=== PATIENT | male | born 1960 | race Caucasian/White ===

== ENCOUNTER 2019-04-22 15:43 | Inpatient (IN) | payer OTHER ==
[2019-04-22 17:44] VITALS: BMI 26.4
--- NOTE | 2019-04-22 21:00 | HP ---
COWS - Scale Resting Pulse: 0= [place] 80 or Below Sweatin=Flushed/Facial Moisture Restless Observation: 1= Difficult to Sit Still Pupil Size: 2= Moderately Dilated Bone or Joint Aches: 4=Acute Joint/Muscle Pain Runny Nose/ Eye Tearin= Runny Nose/Eyes GI Upset > 30mins: 1= Stomach Cramp Tremor Observation: 2= Slight Tremor Visible Yawning Observation: 0= None Anxiety or Irritability: 2=Irritable/Anxious Goose Flesh Skin: 3=Piloerection COWS Score: 19 CIWA Score - Admission Criteria [facility]ASAS Guidelines: Admission for Medically Managed Detox: Requires at least one of the followin. CIWA greater than 12 2. Seizures within the past 24 hours 3. Delirium tremens within the past 24 hours 4. Hallucinations within the past 24 hours 5. Acute intervention needed for co occurring medical disorder 6. Acute intervention needed for co occurring psychiatric disorder 7. Severe withdrawal that cannot be handled at a lower level of care (continued vomiting, continued diarrhea, abnormal vital signs) requiring intravenous medication and/or fluids 8. Admission [facility] Chief Complaint: Heroin withdrawal symptoms Allergies/Adverse Reactions: Allergies Allergy/AdvReac Type Severity Reaction Status Date / Time No Known Allergies Allergy Verified 04/22/19 17:38 History of Present Illness: 58 years old male with 41 years of heroin dependence (since age 17 years) is seeking admission to detox. Patient reports that this is his first admission to detox and also this is his first time at [facility]. He has medical history of DM type 2 and hypertension. He denies suicide attempt and suicidal ideation at this time. Exam Limitations: No Limitations - Ebola screening Have you traveled outside of the country in the last 21 days: No Have you had contact with anyone from an Ebola affected area: No - Review of Systems Constitutional: Chills, Malaise EENT: reports: Nose Congestion Respiratory: reports: No Symptoms reported Cardiac: reports: No Symptoms Reported GI: reports: Poor Appetite, Poor Fluid Intake : reports: No Symptoms Reported Musculoskeletal: reports: Back Pain Integumentary: reports: Dryness, Flushing Neuro: reports: Headache, Tremors Endocrine: reports: Increased Hunger, Increased Thirst, Increased Urine Hematology: reports: No Symptoms Reported Psychiatric: reports: Mood/Affect Appropiate, Orientated x3 Other Systems: Reviewed and Negative Patient History - Patient Medical History Hx Anemia: No Hx Asthma: No Hx Chronic Obstructive Pulmonary Disease (COPD): No Hx Cancer: No Hx Cardiac Disorders: No Hx Congestive Heart Failure: No Hx Hypertension: Yes Hx Hypercholesterolemia: No Hx Pacemaker: No HX Cerebrovascular Accident: No Hx Seizures: No Hx Dementia: No Hx Diabetes: Yes Hx Gastrointestinal Disorders: No Hx Liver Disease: No Hx Genitourinary Disorders: No Hx Sexually Transmitted Disorders: No Hx Renal Disease (ESRD): No Hx Thyroid Disease: No Hx Human Immunodeficiency Virus (HIV): No (Negative 2018) Hx Hepatitis C: No Hx Depression: No Hx Suicide Attempt: No (Denies suicide attempt/ suicidal ideation at this time) Hx Bipolar Disorder: No Hx Schizophrenia: No - Patient Surgical History Past Surgical History: No - PPD History Previous Implant?: Yes Documented Results: Negative w/o proof Implanted On Prior [facility] Admission?: No PPD to be Administered?: Yes - Reproductive History Patient is a Female of Child Bearing Age (11 -55 yrs old): No (Male) - Smoking Cessation Smoking history: Current every day smoker Have you smoked in the past 12 months: Yes Aproximately how many cigarettes per day: 15 Hx Chewing Tobacco Use: No Initiated information on smoking cessation: Yes 'Breaking Loose' booklet given: 04/22/19 - Substance & Tx. History Hx Alcohol Use: No Hx Substance Use: Yes Substance Use Type: Heroin Hx Substance Use Treatment: No - Substances abused Heroin Substance route: Injection Frequency: Daily Amount used: 10 to 15 bags Age of first use: 18 Date of last use: 04/22/19 Family Disease History - Family Disease History Family Disease History: Heart Disease: Father Admission Physical Exam [facility] - Vital Signs Vital Signs: Vital Signs - 24 hr 04/22/19 17:38 Temperature 98.1 F Pulse Rate 61 Respiratory 18 Rate Blood Pressure 103/66 - Physical General Appearance: Yes: Moderate Distress HEENTM: Yes: Nasal Congestion Respiratory: Yes: Lungs Clear, Normal Breath Sounds, No Respiratory Distress Neck: Yes: Supple Breast: Yes: Breast Exam Deferred Cardiology: Yes: Regular Rhythm, Regular Rate Abdominal: Yes: Normal Bowel Sounds Genitourinary: Yes: Within Normal Limits Back: Yes: Normal Inspection Musculoskeletal: Yes: Back pain Extremities: Yes: Tremors Neurological: Yes: Alert, Normal Mood/Affect Integumentary: Yes: Warm Lymphatic: Yes: Within Normal Limits - Diagnostic (1) Opioid dependence with withdrawal Current Visit: Yes Status: Acute (2) Hypertension Current Visit: Yes Status: Acute Qualifiers: Hypertension type: essential hypertension Qualified Code(s): I10 - Essential (primary) hypertension (3) DM type 2 (diabetes mellitus, type 2) Current Visit: Yes Status: Chronic Qualifiers: Diabetes mellitus complication status: with other specified complication Cleared for Admission S - Detox or Rehab [facility] Level of Care: Medically Managed Detox Regimen/Protocol: Librium Breathalyzer - Breathalyzer Breathalyzer: 0 Urine Drug Screen - Test Device Lot number: [id number] Expiration date: 02/01/21 - Control Is test valid?: Yes - Results Drug screen NEGATIVE: No Urine drug screen results: MOP-Opiates Inpatient Rehab Admission - Rehab Decision to Admit Inpatient rehab admission?: No
[2019-04-22] MEDS ORDERED: cloNIDine HCL 0.1 MG TABLET PO PRN (21:11)
[2019-04-22] MEDS ORDERED: MAGNESIUM CITRATE 300 ML BOTTLE PO PRN (21:11)
[2019-04-22] MEDS ORDERED: IBUPROFEN 400 MG TABLET (FP) PO PRN (21:11)
[2019-04-22] MEDS ORDERED: MELATONIN 5 MG TABLETS PO PRN (21:11)
[2019-04-22] MEDS ORDERED: METHADONE HCL 10 MG TABLET (FOR DETOX USE ONLY) PO ONE (21:11)
[2019-04-22] MEDS ORDERED: BISMUTH SUBSALICYLATE 524 MG/30 ML UD PO PRN (21:11)
[2019-04-22] MEDS ORDERED: ACETAMINOPHEN 325 MG TABLET (FP) PO PRN ×2 (21:11)
[2019-04-22] MEDS ORDERED: MAG HYDROX/AL HYDROX/SIMETH 30 ML UNIT-DOSE CUP PO PRN (21:11)
[2019-04-22] MEDS ORDERED: NICOTINE POLACRILEX 2 MG GUM BUC PRN (21:11)
[2019-04-22] MEDS ORDERED: MENTHOL/PHENOL 1 EACH UD MM PRN (21:11)
[2019-04-22] MEDS ORDERED: PATIENT'S OWN MEDICATION (NON-FORMULARY) (Insulin Glargine,Hum.Rec.Anlog 20 UNITS) SCJ SCH (22:00)
[2019-04-22] MEDS: THIAMINE HCL 100 MG TABLET (FP) PO SCH (23:16)
[2019-04-22] MEDS ORDERED: INSULIN (NOVOLOG) ASPART 100 UNITS/ML 10ML VIAL SQ ONE (23:34)
[2019-04-22] MEDS ORDERED: INSULIN SLIDING SCALE (NOVOLOG) 1 VIAL SQ ONE (23:45)
[2019-04-22] MEDS ORDERED: INSULIN (LEVEMIR) 100 UNITS/ML UNITS SQ ONE (23:48)
[2019-04-23] MEDS ORDERED: INSULIN SLIDING SCALE (NOVOLOG) 1 VIAL SQ SCH (07:00)
[2019-04-23] MEDS ORDERED: METHADONE HCL 10 MG TABLET (FOR DETOX USE ONLY) ONE (09:29)
[2019-04-23] MEDS ORDERED: METHADONE HCL 5 MG TABLET (FOR DETOX USE ONLY) ONE (09:29)
[2019-04-23] MEDS ORDERED: METHADONE (DETOX) 20 MG, METHADONE (DETOX) 5 MG PO ONE (10:00)
[2019-04-23 10:42] LABS: ALBUMIN 3.4 g/dl (3.4-5.0); BILIRUBIN,TOTAL 0.4 mg/dL (0.2-1); BLOOD UREA NITROGEN 16.7 mg/dL (7-18); CALCIUM 8.9 mg/dL (8.5-10.1); POTASSIUM 4.1 mmol/L (3.5-5.1); TOT PROT 6.5 g/dl (6.4-8.2)
[2019-04-23 10:55] LABS: HEMATOCRIT 32.7 % (35.4-49); HEMOGLOBIN 11.1 GM/dL (11.7-16.9); MCH 28.1 pg (25.7-33.7); MCHC 34.1 g/dl (32.0-35.9); MEAN CELL VOLUME 82.5 fl (80-96); MEAN PLT VOLUME 8.5 fl (7.5-11.1); PLATELET COUNT 168 K/MM3 (134-434); RBC 3.96 M/mm3 (4.00-5.60); RDW 13.7 % (11.9-15.9); WHITE BLOOD COUNT 3.8 K/mm3 (4.0-10.0)
[2019-04-23] MEDS: LISINOPRIL 10 MG TABLET (FP) PO SCH (11:04)
[2019-04-23] MEDS: PRENATAL VITAMINS W/ FOLIC ACID TABLET (FP) PO SCH (11:04)
[2019-04-23] MEDS: NICOTINE 14 MG/24 HOURS TOPICAL PATCH TD SCH (11:04)
[2019-04-23] MEDS: MAGNESIUM HYDROX 2400MG/30ML ORAL SUSPENSION 30 ML CUP PO PRN (11:05)
--- NOTE | 2019-04-23 13:46 | PN ---
BHS COWS - Scale Resting Pulse: 0= [place] 80 or Below Sweatin= Chills/Flushing Restless Observation: 1= Difficult to Sit Still Pupil Size: 0= Normal to Room Light Bone or Joint Aches: 1= Mild Discomfort Runny Nose/ Eye Tearin= None GI Upset > 30mins: 1= Stomach Cramp (Constipation.) Tremor Observation of Outstretched Hands: 0= None Yawning Observation: 1= 1-2x During Session Anxiety or Irritability: 2=Irritable/Anxious Goose Flesh Skin: 3=Piloerection COWS Score: 10 BHS Progress Note (SOAP) Subjective: Sweating, Tremors, Body Aches, Constipation. Patient Reports That Withdrawal /Detox Symptoms have subsided somewhat today in comparison to yesterday. Objective: PATIENT A & O X 3, OBSERVED AMBULATING ON UNIT UNASSISTED. IN NO ACUTE DISTRESS. 04/23/19 13:47 Vital Signs Temperature 98.6 F 04/23/19 09:20 Pulse Rate 63 04/23/19 09:20 Respiratory Rate 18 04/23/19 09:20 Blood Pressure 118/75 04/23/19 09:20 O2 Sat by Pulse Oximetry (%) Laboratory Tests 04/22/19 04/23/19 04/23/19 21:47 08:00 08:00 WBC 3.8 L RBC 3.96 L Hgb 11.1 L Hct 32.7 L MCV 82.5 MCH 28.1 MCHC 34.1 RDW 13.7 Plt Count 168 MPV 8.5 Sodium 134 L Potassium 4.1 Chloride 98 Carbon Dioxide 33 H Anion Gap 4 L BUN 16.7 Creatinine 1.0 Est GFR (CKD-EPI)AfAm 95.06 Est GFR (CKD-EPI)NonAf 82.02 POC Glucometer 443 Random Glucose 401 H* Calcium 8.9 Total Bilirubin 0.4 AST 13 L ALT 25 Alkaline Phosphatase 84 Total Protein 6.5 Albumin 3.4 RPR Titer 04/23/19 04/23/19 08:00 11:45 WBC RBC Hgb Hct MCV MCH MCHC RDW Plt Count MPV Sodium Potassium Chloride Carbon Dioxide Anion Gap BUN Creatinine Est GFR (CKD-EPI)AfAm Est GFR (CKD-EPI)NonAf POC Glucometer > 600 Random Glucose Calcium Total Bilirubin AST ALT Alkaline Phosphatase Total Protein Albumin RPR Titer Nonreactive LABS NOTED. Assessment: 04/23/19 13:48 WITHDRAWAL SYMPTOMS. LEUKOPENIA. ANEMIA. Plan: CONTINUE DETOX. INCREASE DAILY PO WATER INTAKE. PRN MOM FOR CONSTIPATION. PATIENT IS CURRENTLY RECEIVING DAILY MVI CONTAINING B VITAMINS AND IRON WHILE ADMITTED FOR DETOX.
[2019-04-23] MEDS ORDERED: INSULIN SLIDING SCALE (NOVOLOG) 1 VIAL SQ ONE ×2 (14:12→17:22)
[2019-04-23] MEDS ORDERED: INSULIN (NOVOLOG) ASPART 100 UNITS/ML 10ML VIAL SQ ONE (14:15)
[2019-04-23] MEDS: INSULIN SLIDING SCALE (NOVOLOG) 1 VIAL SQ SCH (17:16)
[2019-04-23] MEDS: metFORMIN HCL 500 MG TABLET (FP) PO SCH (17:20)
[2019-04-23] MEDS: THIAMINE HCL 100 MG TABLET (FP) PO SCH (23:03)
[2019-04-23] MEDS: INSULIN (LEVEMIR) 100 UNITS/ML UNITS SQ SCH (23:09)
[2019-04-24] MEDS: MAGNESIUM HYDROX 2400MG/30ML ORAL SUSPENSION 30 ML CUP PO PRN (06:07)
[2019-04-24] MEDS: INSULIN SLIDING SCALE (NOVOLOG) 1 VIAL SQ SCH ×3 (08:23→17:12)
[2019-04-24] MEDS ORDERED: METHADONE HCL 10 MG TABLET (FOR DETOX USE ONLY) PO ONE (10:00)
[2019-04-24] MEDS: NICOTINE 14 MG/24 HOURS TOPICAL PATCH TD SCH (10:45)
[2019-04-24] MEDS: PRENATAL VITAMINS W/ FOLIC ACID TABLET (FP) PO SCH (10:45)
[2019-04-24] MEDS: LISINOPRIL 10 MG TABLET (FP) PO SCH (10:45)
[2019-04-24] MEDS: METHOCARBAMOL 500 MG TABLET PO PRN (10:46)
--- NOTE | 2019-04-24 11:34 | PN ---
S COWS - Scale Resting Pulse: 0= [place] 80 or Below Sweatin= Chills/Flushing Restless Observation: 0= Sits Still Pupil Size: 0= Normal to Room Light Bone or Joint Aches: 1= Mild Discomfort Runny Nose/ Eye Tearin= Nasal Congestion GI Upset > 30mins: 1= Stomach Cramp Tremor Observation of Outstretched Hands: 2= Slight Tremor Visible Yawning Observation: 1= 1-2x During Session Anxiety or Irritability: 2=Irritable/Anxious Goose Flesh Skin: 0=Smooth Skin COWS Score: 9 [facility] Progress Note (SOAP) Subjective: report constipation x "weeks" begin colace 100mg po tid + senna 2 tabs po hs encourage oral fluid abdomen soft no vomiting none tenderness + BS Objective: 04/24/19 11:32 Vital Signs Temperature 98.8 F 04/24/19 09:10 Pulse Rate 80 04/24/19 09:10 Respiratory Rate 18 04/24/19 09:10 Blood Pressure 126/82 04/24/19 09:10 O2 Sat by Pulse Oximetry (%) Laboratory Last Values WBC 3.8 K/mm3 (4.0-10.0) L 04/23/19 08:00 RBC 3.96 M/mm3 (4.00-5.60) L 04/23/19 08:00 Hgb 11.1 GM/dL (11.7-16.9) L 04/23/19 08:00 Hct 32.7 % (35.4-49) L 04/23/19 08:00 MCV 82.5 fl (80-96) 04/23/19 08:00 MCH 28.1 pg (25.7-33.7) 04/23/19 08:00 MCHC 34.1 g/dl (32.0-35.9) 04/23/19 08:00 RDW 13.7 % (11.9-15.9) 04/23/19 08:00 Plt Count 168 K/MM3 (134-434) 04/23/19 08:00 MPV 8.5 fl (7.5-11.1) 04/23/19 08:00 Sodium 134 mmol/L (136-145) L 04/23/19 08:00 Potassium 4.1 mmol/L (3.5-5.1) 04/23/19 08:00 Chloride 98 mmol/L (98-107) 04/23/19 08:00 Carbon Dioxide 33 mmol/L (21-32) H 04/23/19 08:00 Anion Gap 4 MMOL/L (8-16) L 04/23/19 08:00 BUN 16.7 mg/dL (7-18) 04/23/19 08:00 Creatinine 1.0 mg/dL (0.55-1.3) 04/23/19 08:00 Est GFR (CKD-EPI)AfAm 95.06 04/23/19 08:00 Est GFR (CKD-EPI)NonAf 82.02 04/23/19 08:00 POC Glucometer 263 UNITS (80-120) 04/24/19 11:18 Random Glucose 401 mg/dL (74-106) H* 04/23/19 08:00 Calcium 8.9 mg/dL (8.5-10.1) 04/23/19 08:00 Total Bilirubin 0.4 mg/dL (0.2-1) 04/23/19 08:00 AST 13 U/L (15-37) L 04/23/19 08:00 ALT 25 U/L (13-61) 04/23/19 08:00 Alkaline Phosphatase 84 U/L (45-117) 04/23/19 08:00 Total Protein 6.5 g/dl (6.4-8.2) 04/23/19 08:00 Albumin 3.4 g/dl (3.4-5.0) 04/23/19 08:00 RPR Titer Nonreactive (NONREACTIVE) 04/23/19 08:00 lab noted Assessment: 04/24/19 11:33 opiate withdrawal sx 04/24/19 11:33 constipation Plan: continue opiate detox colace + senna
[2019-04-24] MEDS: DOCUSATE SODIUM 100 MG CAPSULE (FP) PO SCH ×2 (15:15→22:30)
--- NOTE | 2019-04-24 17:45 | EKG ---
Test Reason : Blood Pressure : / mmHG Vent. Rate : 056 BPM Atrial Rate : 056 BPM P-R Int : 170 ms QRS Dur : 084 ms QT Int : 440 ms P-R-T Axes : 068 -03 023 degrees QTc Int : 424 ms SINUS BRADYCARDIA OTHERWISE NORMAL ECG NO PREVIOUS ECGS AVAILABLE Confirmed by MASSIMO SHIELDS MD ([id number]) on 04/24/2019 5:45:26 PM Referred By: Confirmed By:MASSIMO SHIELDS MD
[2019-04-24] MEDS: INSULIN (LEVEMIR) 100 UNITS/ML UNITS SQ SCH (22:30)
[2019-04-24] MEDS: THIAMINE HCL 100 MG TABLET (FP) PO SCH (22:31)
[2019-04-24] MEDS: SENNOSIDES 8.6MG TABLET (FP) PO SCH (22:31)
[2019-04-25] MEDS: INSULIN SLIDING SCALE (NOVOLOG) 1 VIAL SQ SCH ×3 (07:26→17:00)
[2019-04-25] MEDS: DOCUSATE SODIUM 100 MG CAPSULE (FP) PO SCH ×3 (07:27→22:04)
[2019-04-25] MEDS ORDERED: METHADONE HCL 5 MG TABLET (FOR DETOX USE ONLY) ONE (09:56)
[2019-04-25] MEDS ORDERED: METHADONE HCL 10 MG TABLET (FOR DETOX USE ONLY) ONE (09:56)
[2019-04-25] MEDS ORDERED: METHADONE (DETOX) 10 MG, METHADONE (DETOX) 5 MG PO ONE (10:00)
[2019-04-25] MEDS: NICOTINE 14 MG/24 HOURS TOPICAL PATCH TD SCH (10:35)
[2019-04-25] MEDS: PRENATAL VITAMINS W/ FOLIC ACID TABLET (FP) PO SCH (10:35)
[2019-04-25] MEDS: LISINOPRIL 10 MG TABLET (FP) PO SCH (10:35)
[2019-04-25] MEDS ORDERED: INSULIN SLIDING SCALE (NOVOLOG) 1 VIAL SQ ONE (11:50)
--- NOTE | 2019-04-25 13:56 | PN ---
BHS COWS - Scale Resting Pulse: 0= [place] 80 or Below Sweatin= Chills/Flushing Restless Observation: 0= Sits Still Pupil Size: 0= Normal to Room Light Bone or Joint Aches: 1= Mild Discomfort Runny Nose/ Eye Tearin= Nasal Congestion GI Upset > 30mins: 1= Stomach Cramp Tremor Observation of Outstretched Hands: 1= Tremor [place], Not Seen Yawning Observation: 1= 1-2x During Session Anxiety or Irritability: 1=Feels Anxious/Irritable Goose Flesh Skin: 0=Smooth Skin COWS Score: 7 S Progress Note (SOAP) Subjective: doing well with methadone detox regimen mild body aches less sweating Objective: 04/25/19 13:53 Vital Signs Temperature 98.5 F 04/25/19 13:39 Pulse Rate 52 L 04/25/19 13:39 Respiratory Rate 18 04/25/19 13:39 Blood Pressure 120/78 04/25/19 13:39 O2 Sat by Pulse Oximetry (%) Laboratory Last Values WBC 3.8 K/mm3 (4.0-10.0) L 04/23/19 08:00 RBC 3.96 M/mm3 (4.00-5.60) L 04/23/19 08:00 Hgb 11.1 GM/dL (11.7-16.9) L 04/23/19 08:00 Hct 32.7 % (35.4-49) L 04/23/19 08:00 MCV 82.5 fl (80-96) 04/23/19 08:00 MCH 28.1 pg (25.7-33.7) 04/23/19 08:00 MCHC 34.1 g/dl (32.0-35.9) 04/23/19 08:00 RDW 13.7 % (11.9-15.9) 04/23/19 08:00 Plt Count 168 K/MM3 (134-434) 04/23/19 08:00 MPV 8.5 fl (7.5-11.1) 04/23/19 08:00 Sodium 134 mmol/L (136-145) L 04/23/19 08:00 Potassium 4.1 mmol/L (3.5-5.1) 04/23/19 08:00 Chloride 98 mmol/L (98-107) 04/23/19 08:00 Carbon Dioxide 33 mmol/L (21-32) H 04/23/19 08:00 Anion Gap 4 MMOL/L (8-16) L 04/23/19 08:00 BUN 16.7 mg/dL (7-18) 04/23/19 08:00 Creatinine 1.0 mg/dL (0.55-1.3) 04/23/19 08:00 Est GFR (CKD-EPI)AfAm 95.06 04/23/19 08:00 Est GFR (CKD-EPI)NonAf 82.02 04/23/19 08:00 POC Glucometer 188 UNITS (80-120) 04/25/19 11:44 Random Glucose 401 mg/dL (74-106) H* 04/23/19 08:00 Calcium 8.9 mg/dL (8.5-10.1) 04/23/19 08:00 Total Bilirubin 0.4 mg/dL (0.2-1) 04/23/19 08:00 AST 13 U/L (15-37) L 04/23/19 08:00 ALT 25 U/L (13-61) 04/23/19 08:00 Alkaline Phosphatase 84 U/L (45-117) 04/23/19 08:00 Total Protein 6.5 g/dl (6.4-8.2) 04/23/19 08:00 Albumin 3.4 g/dl (3.4-5.0) 04/23/19 08:00 RPR Titer Nonreactive (NONREACTIVE) 04/23/19 08:00 insuliin coverage based on bgm level gradually controlled within acceptable range today lab noted 04/25/19 13:55 Assessment: 04/25/19 13:56 opiate withdrawal sx Plan: continue opiate detox
[2019-04-25] MEDS: metFORMIN HCL 500 MG TABLET (FP) PO SCH (17:21)
[2019-04-25] MEDS: SENNOSIDES 8.6MG TABLET (FP) PO SCH (22:03)
[2019-04-25] MEDS: THIAMINE HCL 100 MG TABLET (FP) PO SCH (22:04)
[2019-04-25] MEDS: INSULIN (LEVEMIR) 100 UNITS/ML UNITS SQ SCH (22:04)
[2019-04-25] MEDS: METHOCARBAMOL 500 MG TABLET PO PRN (22:06)
[2019-04-25] MEDS ORDERED: clonazePAM 0.5 MG TABLET PO PRN (23:21)
[2019-04-26] MEDS: metFORMIN HCL 500 MG TABLET (FP) PO SCH ×4 (01:28→08:12)
[2019-04-26] MEDS: INSULIN SLIDING SCALE (NOVOLOG) 1 VIAL SQ SCH ×3 (01:29→11:04)
[2019-04-26] MEDS ORDERED: hydrOXYzine PAMOATE 50 MG CAPSULE (FP) PO PRN (01:50)
[2019-04-26] MEDS: DOCUSATE SODIUM 100 MG CAPSULE (FP) PO SCH (07:59)
[2019-04-26] MEDS ORDERED: METHADONE HCL 10 MG TABLET (FOR DETOX USE ONLY) PO ONE (10:00)
[2019-04-26] MEDS: LISINOPRIL 10 MG TABLET (FP) PO SCH (10:37)
[2019-04-26] MEDS: PRENATAL VITAMINS W/ FOLIC ACID TABLET (FP) PO SCH (10:38)
[2019-04-26] MEDS: NICOTINE 14 MG/24 HOURS TOPICAL PATCH TD SCH (10:38)
[2019-04-26 13:29] VITALS: BP 125/82; PULSE 86; TEMP 98.3
--- NOTE | 2019-04-26 14:00 | DS ---
[facility] Detox Discharge Summary Admission Date: 04/22/19 Discharge Date: 04/26/19 - History Present History: Opioid Dependence Additional Comments: 58 years old male admitted on 04/23/19 for acute opiate withdrawal sx management doing well with methadone detox regimen no complication noted alert oriented x 3 no shortness of breath no diarrhea denies dizziness patient prefers to go to [place] [facility] for opiate misuse Pertinent Past History: diabetes II hypertension - Physical Exam Results Vital Signs: Vital Signs Temperature 98.3 F 04/26/19 13:28 Pulse Rate 86 04/26/19 13:28 Respiratory Rate 18 04/26/19 13:28 Blood Pressure 125/82 04/26/19 13:28 O2 Sat by Pulse Oximetry (%) Pertinent Admission Physical Exam Findings: opiate withdrawal sx Laboratory Last Values WBC 3.8 K/mm3 (4.0-10.0) L 04/23/19 08:00 RBC 3.96 M/mm3 (4.00-5.60) L 04/23/19 08:00 Hgb 11.1 GM/dL (11.7-16.9) L 04/23/19 08:00 Hct 32.7 % (35.4-49) L 04/23/19 08:00 MCV 82.5 fl (80-96) 04/23/19 08:00 MCH 28.1 pg (25.7-33.7) 04/23/19 08:00 MCHC 34.1 g/dl (32.0-35.9) 04/23/19 08:00 RDW 13.7 % (11.9-15.9) 04/23/19 08:00 Plt Count 168 K/MM3 (134-434) 04/23/19 08:00 MPV 8.5 fl (7.5-11.1) 04/23/19 08:00 Sodium 134 mmol/L (136-145) L 04/23/19 08:00 Potassium 4.1 mmol/L (3.5-5.1) 04/23/19 08:00 Chloride 98 mmol/L (98-107) 04/23/19 08:00 Carbon Dioxide 33 mmol/L (21-32) H 04/23/19 08:00 Anion Gap 4 MMOL/L (8-16) L 04/23/19 08:00 BUN 16.7 mg/dL (7-18) 04/23/19 08:00 Creatinine 1.0 mg/dL (0.55-1.3) 04/23/19 08:00 Est GFR (CKD-EPI)AfAm 95.06 04/23/19 08:00 Est GFR (CKD-EPI)NonAf 82.02 04/23/19 08:00 POC Glucometer 184 UNITS (80-120) 04/26/19 11:03 Random Glucose 401 mg/dL (74-106) H* 04/23/19 08:00 Calcium 8.9 mg/dL (8.5-10.1) 04/23/19 08:00 Total Bilirubin 0.4 mg/dL (0.2-1) 04/23/19 08:00 AST 13 U/L (15-37) L 04/23/19 08:00 ALT 25 U/L (13-61) 04/23/19 08:00 Alkaline Phosphatase 84 U/L (45-117) 04/23/19 08:00 Total Protein 6.5 g/dl (6.4-8.2) 04/23/19 08:00 Albumin 3.4 g/dl (3.4-5.0) 04/23/19 08:00 RPR Titer Nonreactive (NONREACTIVE) 04/23/19 08:00 lab noted - Treatment Hospital Course: Detox Protocol Followed, Detoxed Safely, Responded well, Discharged Condition Good, Rehab Referral Accepted Patient has Accepted a Rehab Referral to: [facility] - Medication Discharge Medications: Ambulatory Orders Benzonatate 100 mg PO TID PRN 04/22/19 Cyclobenzaprine HCl 10 mg PO TID 04/22/19 Insulin Glargine,Hum.rec.anlog [Lantus Solostar PEN -] 20 units SCJ HS 04/22/19 Novolog 5 units SCJ PRN PRN 04/22/19 Ondansetron [Zofran Odt -] 4 mg PO TID PRN 04/22/19 Lisinopril 10 mg PO DAILY #30 tablet 04/26/19 Metformin HCl [Glucophage] 1,000 mg PO BID #60 tablet 04/26/19 - Diagnosis (1) Opioid dependence with withdrawal Current Visit: Yes Status: Acute (2) Hypertension Current Visit: Yes Status: Chronic Qualifiers: Hypertension type: essential hypertension Qualified Code(s): I10 - Essential (primary) hypertension (3) DM type 2 (diabetes mellitus, type 2) Current Visit: Yes Status: Chronic Qualifiers: Diabetes 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
[2019-04-27] MEDS ORDERED: METHADONE HCL 5 MG TABLET (FOR DETOX USE ONLY) PO ONE (06:00)
== END 2019-04-26 12:30 | disposition home or self-care (01) | DRG 773 ==
LOC: YASAS 15:43 → Y3N 22:04
PROVIDERS: ADMIT Surgery; ATTEND Surgery
PROC: HZ2ZZZZ Detoxification Services for Substance Abuse Treatment (ICD-10-PCS; principal; 2019-04-22)
DX: F11.23 Opioid dependence with withdrawal (principal); F17.210 Nicotine dependence, cigarettes, uncomplicated; I10 Essential (primary) hypertension; E11.9 Type 2 diabetes mellitus without complications; K59.00 Constipation, unspecified; D72.819 Decreased white blood cell count, unspecified; D64.9 Anemia, unspecified; Z79.4 Long term (current) use of insulin
CPT/HCPCS: 36415; 80053; 82962; 85027; 86480; 86593; 93005; 93010